=== PATIENT | female | born 1980 | race Caucasian/White ===

== ENCOUNTER 2022-01-17 09:25 | Emergency (ER) | payer OTHER, SELFPAY ==
--- NOTE | ~2022-01-17 | CT_ITS ---
EXAMINATION: CT ABDOMEN AND PELVIS WITHOUT CONTRAST CLINICAL INFORMATION: Abdominal tenderness and guarding COMPARISON: AP abdomen and pelvis 02/14/2017 TECHNIQUE: Multidetector volumetric imaging was performed from the superior aspect of the liver through the pubic symphysis. Sagittal and coronal reformatted images were obtained on the technologist's workstation. This CT examination was performed using dose optimization techniques as appropriate, variously including the following: *Automated exposure control *Adjustment of mA and/or kV according to patient size (this includes techniques or standardized protocols for targeted exams where dose is matched to indication/reason for exam; i.e. extremities or head) *Use of iterative reconstruction technique DLP: 669 mGy-cm FINDINGS: LUNG BASES: The visualized lung bases are unremarkable. LIVER, GALLBLADDER, AND BILIARY TREE: The liver is normal in size, shape, and attenuation. No focal hepatic lesion or biliary ductal dilatation is present. The gallbladder is unremarkable with no evidence of radiopaque gallstones, gallbladder wall thickening, or obvious pericholecystic inflammatory changes. PANCREAS: Unremarkable. SPLEEN: Unremarkable. ADRENAL GLANDS: Unremarkable. KIDNEYS AND URETERS: The kidneys are normal in size, shape, and attenuation. No hydronephrosis, hydroureter, or calculi seen. No perinephric stranding. BLADDER: Unremarkable. GASTROINTESTINAL TRACT: The small and large bowel are unremarkable. Status post appendectomy. No ascites or free air. ABDOMINAL WALL: Small fat-containing umbilical hernia. LYMPH NODES: No lymphadenopathy. VASCULAR: Normal caliber abdominal aorta. PELVIC VISCERA: Low-density bilateral adnexal lesions, presumably cysts, not optimally evaluated. The ovaries appear position relatively near the midline posterior to the uterus. Trace free pelvic fluid. OSSEOUS STRUCTURES: No acute fracture or suspicious osseous lesion. Prominent subchondral sclerosis and minimal osteophyte formation at the SI joints bilaterally without appreciable erosions or evidence of ankylosis. CT/CT abdomen pelvis wo con IMPRESSION: 1. No acute intra-abdominal process identified. 2. Low-density bilateral adnexal lesions presumably cysts, not optimally characterized with suspected trace free pelvic fluid. Suggest correlation with pain referable to the pelvis and additional pelvic ultrasound as clinically indicated. 3. Status post appendectomy.
--- NOTE | 2022-01-17 10:36 | PC.NURSE ---
EATING POTATO CHIPS IN WR
[2022-01-17 10:39] LABS: MANUAL DIFF FLAG NO
[2022-01-17 10:41] LABS: Appearance Urine HAZY; Basophils Percent Auto 0.4 % (0-2); Color Urine YELLOW; Eosinophils Absolute Auto 0.2 X10*3/uL (0.0-0.4); Eosinophils Percent Auto 2.5 % (0-4); Glucose Urine UA NEG (NEG); Hematocrit 39.1 % (37.0-47.0); Hemoglobin 13.2 g/dl (12.0-16.0); Imm Gran Abs Auto 0.02 X10*3/uL (0.00-0.03); Imm Gran Pct Auto 0.3 % (0.0-0.4); Leukocyte Esterase Urine NEG (NEG); Lymphocytes Absolute Auto 1.5 X10*3/uL (1.2-4.9); Lymphocytes Percent Auto 19.9 % (20-40); Mean Corpuscular HGB Conc 33.8 g/dl (31.0-35.0); Mean Corpuscular Hemoglobin 31.4 pg (27.0-33.0); Mean Corpuscular Volume 93.1 fL (80.0-98.0); Mean Platelet Volume 10.1 fL (9.4-12.3); Monocytes Absolute Auto 0.7 X10*3/uL (0.1-1.2); Monocytes Percent Auto 9.4 % (2-11); Neutrophils Absolute Auto 5.1 x10*3/uL (2.0-8.3); Neutrophils Percent Auto 67.5 % (45-73); Nitrite Urine NEG (NEG); Platelet Count 246 X10*3/uL (160-400); Red Cell Distribution Width 11.9 % (11.0-16.0); UACC Culture Trigger NO; Urine Blood TRACE (NEG); Urine Ketones NEG (NEG); Urine Protein NEG (NEG-TRACE); White Blood Count 7.6 X10*3/uL (4.8-10.8)
[2022-01-17 10:44] VITALS: BP 128/64; PULSE 78; RESP 18; TEMP 36.9; O2SAT 99; BMI 29.0
[2022-01-17 11:00] LABS: Anion Gap 11 (12-20); Blood Urea Nitrogen 12 mg/dL (9-16); Calcium 9.3 mg/dL (8.4-10.2); Carbon Dioxide 27 mmol/L (22-29); Chloride 101 mmol/L (96-108); Creatinine Clr Calc Pharmacy 113.6; Estimated Glomerular Filt Rate > 60; Glucose Random 114 mg/dL (60-115); Potassium 3.8 mmol/L (3.3-5.1); Sodium 135 mmol/L (135-145)
[2022-01-17 11:01] LABS: RBC Urine 0-2 /HPF (0); Squamous Epithelial Cell Urine TRACE /LPF; WBC Urine 0-2 /HPF (0-4)
--- NOTE | 2022-01-17 14:46 | ED.ABDPAIN ---
HPI - Abdominal Pain General Chief Complaint: Abdominal Pain Stated Complaint: Abd pain Time Seen by Provider: 01/17/22 14:36 Source: patient Mode of arrival: ambulatory Limitations: no limitations History of Present Illness HPI narrative: 41-year-old female presents for 4 days of abdominal pain. Patient states the pain is worse when she walks and worse with movement. It is worse when she touches her belly. States it is a stabbing pain. Patient states that she worked out yesterday, and it was no worse after working out. Patient has no pain now, she has pain with moving around. Patient does work out frequently. Patient has had an appendectomy, and had endometrial laparoscopic surgery in March of 2020, her last menstrual period was 3 and half weeks ago and her bleeding was heavier than normal. She denies pelvic pain. She denies back pain, dysuria, urinary frequency, vaginal discharge. Denies fevers, nausea, vomiting, diarrhea. Last bowel movement was yesterday, and it was normal, no dark, tarry, or bloody stools. Related Data Previous Rx's Medication Instructions Recorded cyclobenzaprine 10 mg tablet 10 mg PO BEDTIME 7 days #7 tabs 01/17/22 ketorolac 10 mg tablet 10 mg PO Q6H 5 days #20 tabs 01/17/22 Allergies Allergy/AdvReac Type Severity Reaction Status Date / Time No Known Allergies Allergy Verified 01/17/22 10:43 [No Known Allergies*] Review of Systems Constitutional: Denies body ache(s), Denies chills, Denies fatigue, Denies fever(s), Denies headache(s), Denies malaise and Denies weakness Eyes: Denies diplopia Denies vertigo, Denies dizziness, Denies otalgia, Denies headache(s), Denies mouth pain, Denies post nasal drip, Denies sinus pain, Denies sinus pressure, Denies sore throat and Denies throat swelling Cardiovascular: Denies chest pain, Denies syncope, Denies leg edema, Denies lightheadedness, Denies Loss of Consciousness, Denies palpitations and Denies dyspnea Respiratory: Denies chest congestion, Denies cough and Denies dyspnea Gastrointestinal: Reports abdominal pain, Denies hematochezia, Denies constipation, Denies diarrhea and Denies vomiting Musculoskeletal: Reports no additional musculoskeletal complaints Denies confusion, Denies vertigo, Denies dizziness, Denies syncope, Denies headache(s) and Denies weakness Psychiatric: Denies anxiety, Denies confusion and Denies depression Endocrine: Denies fatigue and Denies palpitations Allergic/Immunologic: Denies throat swelling PMFSH Past Medical History Medical History ADHD Anxiety Endometriosis Epilepsy Social History Social History Alcohol intake: current Alcohol intake frequency: a few times a week Patient Tobacco Use Status: Current everyday Tobacco user Use of substances other than those prescribed or required for medical reasons: Yes Substance Use Type: Marijuana Substance Use Frequency: Occasionally Advance Directives: No Advance Directives Information Provided: Yes Patient : No Physical Exam ED Vital Signs: Vital Signs - 24 hr 01/17/22 10:44 01/17/22 15:09 Temperature 98.5 F 98.2 F Pulse Rate 78 67 Respiratory Rate 18 18 Blood Pressure 128/64 134/68 Pulse Oximetry 99 100 Oxygen Delivery Method Room Air Room Air BMI result Body Mass Index 29.0 Const General: No confusion Nutritional Appearance: well nourished Orientation/consciousness: No confusion Limitations: no limitations HENMT Head: Yes normal to inspection, Yes normocephalic and Yes atraumatic Ears: hearing grossly normal bilaterally, external ears normal, TM's normal bilaterally and EAC's normal General nose exam: Normal external nose present Face and sinus: Yes normal facial exam and Yes sinuses nontender Mouth: Normal oral and palatal mucosa present Throat: Yes posterior oropharynx normal Eyes Conjunctivae: conjunctivae normal Pupils: Equal, round and reactive pupils present EOM: EOMs intact bilaterally Neck Neck: Yes full ROM, Yes no lymphadenopathy and Yes supple Resp Effort & Inspection: normal respiratory effort and able to speak in complete sentences Auscultation: clear to auscultation bilaterally, no crackles, no rales, no rhonchi and no wheezes Cardio Rate: regular rate Rhythm: regular rhythm Heart sounds: S1 normal heart sound present and S2 normal heart sound present GI Inspection: Yes normal to inspection Palpation (GI): Soft to palpation, Tenderness to palpation present (GI) in the epigastrum, in the LLQ, in the RLQ, in the LUQ and in the RUQ, Guarding due to palpation present (GI) in the LLQ, in the RLQ, in the LUQ and in the RUQ and not rigid Percussion: Yes normal to percussion Auscultation: normal bowel sounds General: Yes no CVA tenderness Back/Spine/Pelvis Back: no CVA tenderness Skin General skin exam: no rashes or lesions noted Neuro General: No confusion Cranial nerves: Yes Equal, round and reactive pupils present Extrem General: Yes normal to inspection and Yes full ROM Psych Appearance: grossly normal Affect: normal affect Attitude: cooperative Thought process: Normal thought process present Course Course Course Narrative: 41-year-old female presents with 4 days of abdominal pain with no associated symptoms of fever, vomiting, nausea, diarrhea, pelvic pain, vaginal discharge, vaginal bleeding. Patient does work out at the gym frequently On exam, during guarding in all 4 quadrants. Hematology and chemistry were all within normal limits, urine was negative. We could not obtain urine , urine hCG was negative. CT scan is remarkable only for bilateral adnexal cysts. Patient states she knows what pelvic pain feels like, and this is not her endometrial pain, this is a different pain. She denies pelvic pain. I do not think the CT finding is the cause of her pain. Patient is well-appearing with stable vitals. Given negative CT scan a negative workup, most likely musculoskeletal abdominal wall pain given that patient does work out at the gym frequently. Will try ketorolac and Flexeril, gave patient return precautions of worsening abdominal pain, fevers, vomiting, diarrhea, return to emergency room. Patient verbalized agreement understanding of the plan. Reevaluation(s) Reevaluation #1: FINDINGS: LUNG BASES: The visualized lung bases are unremarkable.? LIVER, GALLBLADDER, AND BILIARY TREE: The liver is normal in size, shape, and attenuation. No focal hepatic lesion or biliary ductal dilatation is present. The gallbladder is unremarkable with no evidence of radiopaque gallstones, gallbladder wall thickening, or obvious pericholecystic inflammatory changes.? PANCREAS: Unremarkable.? SPLEEN: Unremarkable.? ADRENAL GLANDS: Unremarkable.? KIDNEYS AND URETERS: The kidneys are normal in size, shape, and attenuation. No hydronephrosis, hydroureter, or calculi seen. No perinephric stranding. ? BLADDER: Unremarkable.? GASTROINTESTINAL TRACT: The small and large bowel are unremarkable. Status post appendectomy. No ascites or free air. ABDOMINAL WALL: Small fat-containing umbilical hernia.? LYMPH NODES: No lymphadenopathy. VASCULAR: Normal caliber abdominal aorta. PELVIC VISCERA: Low-density bilateral adnexal lesions, presumably cysts, not optimally evaluated. The ovaries appear position relatively near the midline posterior to the uterus. Trace free pelvic fluid.? OSSEOUS STRUCTURES: No acute fracture or suspicious osseous lesion. Prominent subchondral sclerosis and minimal osteophyte formation at the SI joints bilaterally without appreciable erosions or evidence of ankylosis.? CT/CT abdomen pelvis wo con IMPRESSION: ? 1. No acute intra-abdominal process identified. 2. Low-density bilateral adnexal lesions presumably cysts, not optimally characterized with suspected trace free pelvic fluid. Suggest correlation with pain referable to the pelvis and additional pelvic ultrasound as clinically indicated. 3. Status post appendectomy.? MDM - Abdominal Pain Lab Data Result diagrams: 01/17/22 10:34 01/17/22 10:34 Labs: Lab Results 01/17/22 01/17/22 01/17/22 Range/Units 10:34 10:34 10:34 WBC 7.6 (4.8-10.8) X10*3/uL RBC 4.20 (4.20-5.50) X10*6/uL Hgb 13.2 (12.0-16.0) g/dl Hct 39.1 (37.0-47.0) % MCV 93.1 (80.0-98.0) fL MCH 31.4 (27.0-33.0) pg MCHC 33.8 (31.0-35.0) g/dl RDW 11.9 (11.0-16.0) % Plt Count 246 (160-400) X10*3/uL MPV 10.1 (9.4-12.3) fL Immature Gran % (Auto) 0.3 (0.0-0.4) % Neut % (Auto) 67.5 (45-73) % Lymph % (Auto) 19.9 L (20-40) % [place] % (Auto) 9.4 (2-11) % Eos % (Auto) 2.5 (0-4) % Baso % (Auto) 0.4 (0-2) % Lymph # (Auto) 1.5 (1.2-4.9) X10*3/uL [place] # (Auto) 0.7 (0.1-1.2) X10*3/uL Eos # (Auto) 0.2 (0.0-0.4) X10*3/uL Baso # (Auto) 0.0 (0.0-0.2) X10*3/uL Abs Immat Gran (auto) 0.02 (0.00-0.03) X10*3/uL Absolute Neuts (auto) 5.1 (2.0-8.3) x10*3/uL Absolute Nucleated RBC 0.000 (0.0-0.012) X10*3/uL Nucleated RBC % (auto) 0.0 (0.0-0.2) /100WBC Sodium 135 (135-145) mmol/L Potassium 3.8 (3.3-5.1) mmol/L Chloride 101 (96-108) mmol/L Carbon Dioxide 27 (22-29) mmol/L Anion Gap 11 L (12-20) BUN 12 (9-16) mg/dL Creatinine 0.74 (0.5-1.4) mg/dL Estim Creat Clear Calc 113.6 Estimated GFR > 60 Random Glucose 114 (60-115) mg/dL Calcium 9.3 (8.4-10.2) mg/dL Beta HCG, Quant < 2 mIU/mL Urine Color YELLOW Urine Appearance HAZY Urine pH 6.0 (5.0-8.0) Ur Specific [employer] 1.020 (1.005-1.025) Urine Protein NEG (NEG-TRACE) MG/DL Urine Glucose (UA) NEG (NEG) MG/DL Urine Ketones NEG (NEG) MG/DL Urine Blood TRACE (NEG) Urine Nitrite NEG (NEG) Ur Leukocyte Esterase NEG (NEG) Urine RBC 0-2 (0) /HPF Urine WBC 0-2 (0-4) /HPF Ur Squamous Epith Cells TRACE /LPF Urine Bacteria NONE /LPF Urine Test 01/17/22 Range/Units 10:34 WBC (4.8-10.8) X10*3/uL RBC (4.20-5.50) X10*6/uL Hgb (12.0-16.0) g/dl Hct (37.0-47.0) % MCV (80.0-98.0) fL MCH (27.0-33.0) pg MCHC (31.0-35.0) g/dl RDW (11.0-16.0) % Plt Count (160-400) X10*3/uL MPV (9.4-12.3) fL Immature Gran % (Auto) (0.0-0.4) % Neut % (Auto) (45-73) % Lymph % (Auto) (20-40) % [place] % (Auto) (2-11) % Eos % (Auto) (0-4) % Baso % (Auto) (0-2) % Lymph # (Auto) (1.2-4.9) X10*3/uL [place] # (Auto) (0.1-1.2) X10*3/uL Eos # (Auto) (0.0-0.4) X10*3/uL Baso # (Auto) (0.0-0.2) X10*3/uL Abs Immat Gran (auto) (0.00-0.03) X10*3/uL Absolute Neuts (auto) (2.0-8.3) x10*3/uL Absolute Nucleated RBC (0.0-0.012) X10*3/uL Nucleated RBC % (auto) (0.0-0.2) /100WBC Sodium (135-145) mmol/L Potassium (3.3-5.1) mmol/L Chloride (96-108) mmol/L Carbon Dioxide (22-29) mmol/L Anion Gap (12-20) BUN (9-16) mg/dL Creatinine (0.5-1.4) mg/dL Estim Creat Clear Calc Estimated GFR Random Glucose (60-115) mg/dL Calcium (8.4-10.2) mg/dL Beta HCG, Quant mIU/mL Urine Color Urine Appearance Urine pH (5.0-8.0) Ur Specific [employer] (1.005-1.025) Urine Protein (NEG-TRACE) MG/DL Urine Glucose (UA) (NEG) MG/DL Urine Ketones (NEG) MG/DL Urine Blood (NEG) Urine Nitrite (NEG) Ur Leukocyte Esterase (NEG) Urine RBC (0) /HPF Urine WBC (0-4) /HPF Ur Squamous Epith Cells /LPF Urine Bacteria /LPF Urine Test Cancelled Discharge Plan Discharge Clinical Impression: Abdominal wall pain Patient Disposition: Home, Self-Care Instructions: Abdominal Pain (ED) Additional Instructions: Your labs, urine, and abdominal CT scan were all negative. The CT scan did show you have some cysts on your on both ovaries, however I do not think this is the source of your abdominal pain. We will treat you with ketorolac and cyclobenzaprine, please do not use any ibuprofen while you are on the ketorolac. Only use the ketorolac for pain, no Aleve, Excedrin, Motrin, or ibuprofen while you are using the ketorolac. Please take the cyclobenzaprine at night, as it can make you sleepy. If the pain is worse, you have fevers or vomiting, please return. We are going on the assumption that this is musculoskeletal pain, which hopefully will be better with the medications I have provided. If it is not better with the medications I provided, within the next 2 days, I want you to return. Prescriptions: New ketorolac 10 mg tablet 10 mg PO Q6H 5 Days Qty: 20 0RF cyclobenzaprine 10 mg tablet 10 mg PO BEDTIME 7 Days Qty: 7 0RF Interventions: ED Discharge Assessment Last Done: 01/17/22 17:10
[2022-01-17 15:09] VITALS: BP 134/68; PULSE 67; RESP 18; TEMP 36.8; O2SAT 100
--- NOTE | 2022-01-17 15:12 | PC.NURSE ---
patient a&ox3, vss, pt c/o 10/25 abd pain, [facility] will continue to monitor
[2022-01-17 15:25] LABS: HCG Quantitative < 2 mIU/mL
== END 2022-01-17 17:24 | disposition home or self-care (01) ==
PROVIDERS: Emergency Provider Emergency Medicine Emergency Medical Services; PCP Internal Medicine
DX: R10.9 Unspecified abdominal pain (principal); F17.200 Nicotine dependence, unspecified, uncomplicated; Z71.6 Tobacco abuse counseling; Z79.899 Other long term (current) drug therapy
CPT/HCPCS: 36415; 74176; 80048; 81001; 81025; 84702; 85025; 96372; 99284

== ENCOUNTER 2024-06-05 13:37 | Emergency (ER) | payer OTHER, SELFPAY | END 2024-06-05 16:32 | disposition left against medical advice (07) | PROVIDERS: Emergency Provider Emergency Medicine; PCP Internal Medicine | DX: H53.8 Other visual disturbances (principal); Z53.21 Procedure and treatment not carried out due to patient leaving prior to being seen by health care provider ==